=== PATIENT | male | born 1990 | race Caucasian/White ===

== ENCOUNTER 2021-05-03 13:25 | Emergency (ER) | payer OTHER | END 2021-05-03 14:13 | disposition home or self-care (01) | LOC: ER1 13:25 | DX: A54.9 Gonococcal infection, unspecified (principal); Z20.2 Contact with and (suspected) exposure to infections with a predominantly sexual mode of transmission; F17.210 Nicotine dependence, cigarettes, uncomplicated | CPT/HCPCS: 96372; 99283; J0696 ==

== ENCOUNTER 2021-06-14 04:12 | Emergency (ER) | payer OTHER ==
[2021-06-14] MEDS ORDERED: ERYTHROMYCIN OP1 GM OP (04:47)
[2021-06-14] MEDS ORDERED: PERCOCET 5-3251 EACH PO (05:11)
== END 2021-06-14 05:30 | disposition home or self-care (01) ==
LOC: ER1 04:12
DX: H16.133 Photokeratitis, bilateral (principal); F17.210 Nicotine dependence, cigarettes, uncomplicated
CPT/HCPCS: 99283